=== PATIENT | male | born 1985 | race Caucasian/White ===

== ENCOUNTER 2019-03-11 18:10 | Emergency (ER) | payer MEDICAID, OTHER ==
[2019-03-11 18:21] VITALS: BP 144/95; TEMP 97.4
--- NOTE | 2019-03-11 19:03 | ED.PDOC ---
General ED Provider: Dr. LALITHA MOY Chief Complaint: Psychiatric Complaint Stated Complaint: Suicidal ideations and threat. Brought to ER by Bronwyn ROCK. States was frustrated with his mother and made a verbal statement to harm himself. Now recanting this stating he did it for the shock value. Time Seen by Physician: 18:50 Mode of Arrival: Walk-In Information Source: Patient Referred to ED by: Other ([facility]D) Nursing and Triage Documentation Reviewed and Agree: Yes Does patient meet sepsis criteria?: No System Inflammatory Response Syndrome: Not Applicable Sepsis Protocol: For patient's 13 years and over: Temp is 96.8 and below OR 101 and greater Pulse >90 BPM Resp >20/minute Acutely Altered Mental Status Are patient's symptoms suggestive of a new infection, such as: -Pneumonia -Skin, Soft Tissue -Endocarditis -UTI -Bone, Joint Infection -Implantable Device -Acute Abdominal Infection -Wound Infection -Meningitis -Blood Stream Catheter Infection -Unknown Psychological Complaint Exam - Psychiatric Complaint/Exam Patient Complains Of: Present: Depression, Suicidal thoughts Onset/Duration: Today Symptoms Are: Still present (but improved) Initial Severity: Severe Current Severity: None Character: Present: Depressed, Anxious Aggravating: Reports: Recent stress, Alcohol use Associated Signs And Symptoms: Denies: Hostile, Confused, Hallucinating, Paranoid behavior, Sleep disturbance, Appetite change Related History: Reports: Suicidal thoughts Completed Suicide Risk Factors: , , Living alone, Unemployed Patient Accompanied By: Police Patient In Custody Of Police: Yes Social Withdrawal Present: No Social Isolation Present: No Prior Suicide Attempt: No Injury From Prior Suicide Attempt: No Related Surgical History: Reports: None Patient Uncooperative For Exam: Yes (Refused lab) Mood: Present: Depressed Appearance: Present: Clean Thought Process: Present: Logical Insight: Present: Good Memory: Intact Judgement: Normal Danger To Others: No Patient Medically Stable For: Psych evaluation Differential Diagnoses: Depression, Suicidal Ideation Review of Systems - Review Of Systems Constitutional: Reports: No symptoms Eyes: Reports: No symptoms Ears, Nose, Mouth, Throat: Reports: No symptoms Respiratory: Reports: No symptoms Cardiac: Reports: No symptoms GI: Reports: No symptoms : Reports: No symptoms Musculoskeletal: Reports: No symptoms Skin: Reports: No symptoms Neurological: Reports: No symptoms Endocrine: Reports: No symptoms Hematologic/Lymphatic: Reports: No symptoms All Other Systems: Reviewed and Negative Past Medical History - Past Medical History Previously Healthy: Yes Endocrine: Reports: None Cardiovascular: Reports: None Respiratory: Reports: None Hematological: Reports: None Gastrointestinal: Reports: None Genitourinary: Reports: None Neuro/Psych: Reports: None Musculoskeletal: Reports: None Cancer: Reports: None - Surgical History General Surgical History: Reports: None - Family History Family History: Reports: None - Social History Smoking Status: Current every day smoker Hx Substance Use: No (marijuana in the past) Alcohol Screening: Occasionally Physical Exam - Physical Exam Appearance: Well-appearing, No pain distress, Well-nourished Ill-appearing: None Pain Distress: None Eyes: CYNTHIA, EOMI, Conjunctiva clear ENT: Ears normal, Nose normal, Oropharynx normal Respiratory: Airway patent, Breath sounds clear, Breath sounds equal, Respirations nonlabored Cardiovascular: RRR, Pulses normal, No rub, No murmur GI/: Soft, Nontender, No masses, Bowel sounds normal, No Organomegaly Musculoskeletal: Normal strength, ROM intact, No edema, No calf tenderness Skin: Warm, Dry, Normal color Neurological: Sensation intact, Motor intact, Reflexes intact, Cranial nerves intact, Alert, Oriented Psychiatric: Affect appropriate, Mood appropriate Physician Notification - Case Discussed Physician Notified: Dr Stallings Time of Notification: 19:00 Critical Care Note - Critical Care Note Total Time (mins): 30 Course - Course Vital Signs: Temp Pulse Resp BP Pulse Ox 03/11/19 18:12 97.4 F L 92 H 16 144/95 H 100 Departure - Departure Time of Disposition: 19:15 Disposition: HOME SELF-CARE Discharge Problem: Suicidal ideation Instructions: Suicide Prevention (ED) Condition: Good Pt referred to PMD for follow-up: Yes (PCP) IPMP verified?: No Additional Instructions: Encourage patient to seek mental health counseling. If develops additional depressed or anxious thoughts, return to ER Allergies/Adverse Reactions: Allergies No Known Allergies Allergy (Verified 03/11/19 18:21) Home Medications: Ambulatory Orders 1 [No Reported Medications] 03/11/19 Disposition Discussed With: Patient
== END 2019-03-11 19:57 | disposition home or self-care (01) ==
LOC: ED 18:10
DX: R45.851 Suicidal ideations (principal); F17.210 Nicotine dependence, cigarettes, uncomplicated
CPT/HCPCS: 99283